=== PATIENT | female | born 1975 | race African-American/Black ===

== ENCOUNTER 2023-12-26 09:21 | Emergency (ER) | payer SELFPAY ==
[~2023-12-26] VITALS: Ht 167.6 cm; Wt 85.0 kg
[2023-12-26 09:29] VITALS: BP 123/73; PULSE 94; RESP 20; TEMP 98.8; O2SAT 100
== END 2023-12-26 13:39 | disposition home or self-care (01) ==
LOC: ER 09:21
DX: R45.89 Other symptoms and signs involving emotional state (principal); R07.89 Other chest pain
CPT/HCPCS: 93005; 99283